=== PATIENT | male | born 1980 ===

== ENCOUNTER 2017-10-27 15:28 | Emergency (ER) | payer MEDICAID, OTHER ==
[2017-10-27 16:04] VITALS: BP 130/74; PULSE 66; RESP 18; TEMP 98.1; O2SAT 98
--- NOTE | 2017-10-27 17:12 | ED PDOC ---
HPI: CCC, URI, Sore Throat Time Seen by Provider: 10/27/17 16:10 Chief Complaint (Nursing): Cough, Cold, Congestion Chief Complaint (Provider): Cough, Cold, Congestion History Per: Patient History/Exam Limitations: no limitations Onset/Duration Of Symptoms: Days (x4) Current Symptoms Are (Timing): Still Present Additional Complaint(s): 37 year old male who presents to the emergency department with a complaint of flu-like symptoms including cough, nasal congestion and subjective fever ongoing for 4 days. Denied any fever, chills, nausea, vomiting, chest pain, shortness of breath, abdominal pain, recent travel, sick contact or taking pain medication. PMD: none provided Past Medical History Reviewed: Historical Data, Nursing Documentation, Vital Signs Vital Signs: Last Vital Signs Temp 98.1 F 10/27/17 16:01 Pulse 66 10/27/17 16:01 Resp 18 10/27/17 16:01 BP 130/74 10/27/17 16:01 Pulse Ox 98 10/27/17 18:19 - Medical History PMH: Bronchitis - Surgical History Surgical History: No Surg Hx - Family History Family History: States: Unknown Family Hx - Social History Current smoker - smoking cessation education provided: Yes Alcohol: Social Drugs: Denies - Immunization History Hx Tetanus Toxoid Vaccination: No Hx Influenza Vaccination: No Hx Pneumococcal Vaccination: No - Home Medications Home Medications: Ambulatory Orders Medication Instructions Recorded Cyclobenzaprine [Cyclobenzaprine 10 mg PO Q8 PRN #9 tab 03/28/15 HCl] Ibuprofen [Motrin] 600 mg PO Q6 PRN #20 tab 03/28/15 Mag&Al/Simet/Diphen/Lido [First 5 ml MM BID #1 kit 04/23/16 Magic Mouthwash] Naproxen [Naprosyn] 500 mg PO BID PRN #30 tab 04/23/16 No Other Home Meds 04/23/16 Penicillin VK [Pen-Vee K] 500 mg PO Q6 #40 tab 04/23/16 Fluticasone Nasal [Flonase] 1 actuation NS BID #1 bottle 10/27/17 Promethazine DM [Phenergan DM 5 ml PO Q6 PRN #1 bottle 10/27/17 Syrup] - Allergies Allergies/Adverse Reactions: Allergies Allergy/AdvReac Type Severity Reaction Status Date / Time No Known Allergies Allergy Verified 10/27/17 16:00 Review of Systems ROS Statement: Except As Marked, All Systems Reviewed And Found Negative Constitutional: Positive for: Fever (subjective) ENT: Positive for: Nose Congestion Cardiovascular: Negative for: Chest Pain Respiratory: Positive for: Cough. Negative for: Shortness of Breath Gastrointestinal: Negative for: Nausea, Vomiting, Abdominal Pain Physical Exam - Reviewed Nursing Documentation Reviewed: Yes Vital Signs Reviewed: Yes - Physical Exam Appears: Positive for: Non-toxic, No Acute Distress ENT: Positive for: Normal ENT Inspection, Pharynx Is (within normal limits), TM Is/Are (clear bilaterally). Negative for: Pharyngeal Erythema, Tonsillar Exudate Cardiovascular/Chest: Positive for: Regular Rate, Rhythm, Chest Non Tender Respiratory: Positive for: Normal Breath Sounds. Negative for: Decreased Breath Sounds, Wheezing, Respiratory Distress Gastrointestinal/Abdominal: Positive for: Normal Exam, Soft. Negative for: Tenderness Neurologic/Psych: Positive for: Alert, Oriented - ECG O2 Sat by Pulse Oximetry: 98 (RA) Pulse Ox Interpretation: Normal Medical Decision Making Medical Decision Making: Initial Impression: URI Initial Plan: * CXR * Influenza A B * Rapid strep Time: 1812 --Rapid flu: positive for influenza A --Rapid strep: negative Time: 1814 --Upon provider reevaluation, patient is feeling better, medically stable and requires no further treatment in the ED at this time. Patient outside window for Tamiflu treatment. Patient will be discharged home with Rx for Flonase nasal spray and Phenergan DM syrup. Counseling was provided and all questions were answered regarding diagnosis and need for follow up with PMD. There is agreement to discharge plan. Return if symptoms persist or worsen. Clinical Impression: Influenza A Scribe Attestation: Documented by Fariha Soto, acting as a scribe for Sofie Salter PA-C. Provider Scribe Attestation: All medical record entries made by the Scribe were at my direction and personally dictated by me. I have reviewed the chart and agree that the record accurately reflects my personal performance of the history, physical exam, medical decision making, and the department course for this patient. I have also personally directed, reviewed, and agree with the discharge instructions and disposition. Disposition - Clinical Impression Clinical Impression: Influenza A - Patient ED Disposition Is Patient to be Admitted: No Counseled Patient/Family Regarding: Studies Performed, Diagnosis, Need For Followup - Disposition Referrals: [facility] [Outside] Disposition: Routine/Home Disposition Time: 18:15 Condition: IMPROVED Prescriptions: Fluticasone Nasal [Flonase] 1 actuation NS BID #1 bottle Promethazine DM [Phenergan DM Syrup] 5 ml PO Q6 PRN #1 bottle PRN Reason: Cough Instructions: Influenza (ED) Forms: [facility] ([facility] ED School/Work Excuse
--- NOTE | 2017-10-27 17:44 | RAD ---
HISTORY: cough COMPARISON: Chest x-ray performed 09/28/14 TECHNIQUE: Chest PA and lateral FINDINGS: LUNGS: No focal consolidation. Please note that chest x-ray has limited sensitivity for the detection of pulmonary masses. PLEURA: No significant pleural effusion identified. No definite pneumothorax . CARDIOVASCULAR: Heart size appears within normal limits. OSSEOUS STRUCTURES: No acute osseous abnormality identified. VISUALIZED UPPER ABDOMEN: Unremarkable. OTHER FINDINGS: None. IMPRESSION: No acute findings identified.
[2017-10-27] MEDS ORDERED: Promethazine DM 6.25 mg-15 mg/5 ml Syrup PO STA (18:19)
[2017-10-27] MEDS ORDERED: guaiFENesin 100 mg/5 ml Syrup UD PO ONE (18:30)
[2017-10-27] MEDS ORDERED: guaiFENesin 100 mg/5 ml Syrup UD ONE (18:34)
== END 2017-10-27 18:43 | disposition home or self-care (01) ==
LOC: H.ER 15:28
DX: J11.1 Influenza due to unidentified influenza virus with other respiratory manifestations (principal); Z72.0 Tobacco use